=== PATIENT | male | born 1935 | race Hispanic/Latino ===

== ENCOUNTER 2019-09-07 12:58 | Emergency (ER) | payer MEDICARE ==
[~2019-09-07] VITALS: Ht 180.3 cm; Wt 85.7 kg
[~2019-09-07 12:58] MED LIST: CILOSTAZOL100 MG PO; FINASTERIDE5 MG PO; GABAPENTIN600 MG PO; LEVAQUIN500 MG PO; LISINOPRIL2.5 MG PO; LSNP2.5 PO; NORVASC10 MG PO; PRAVASTATIN SOD10 MG PO; PROTONIX40 MG PO
[2019-09-07] MEDS ORDERED: ONDANSETRON HCL 4 MG ORAL DISINTEGRATING TAB PO ONE (13:15)
[2019-09-07] MEDS ORDERED: CLONIDINE HCL 0.1 MG TAB PO ONE (13:30)
[2019-09-07 13:45] LABS: BASOPHILS % 0.2 % (0.0-1.0); HEMATOCRIT 43.3 % (38.2-49.6); HEMOGLOBIN 14.6 g/dL (14.0-18.0); LYMPHOCYTES # (AUTO) 0.8 (1.0-3.2); MEAN CORPUSCULAR HGB CONC 33.7 g/dL (31-35); MEAN CORPUSCULAR VOLUME 88.9 fL (81-99); MONOCYTES # (AUTO) 0.5 (0.2-0.8); MONOCYTES % 8.5 % (4.4-11.3); NEUTROPHILS # (AUTO) 4.7 (2.1-6.9); NEUTROPHILS % 77.6 % (38.7-80.0); PLATELET COUNT 127 x10e3/uL (140-360); RED BLOOD COUNT 4.87 x10e6/uL (4.3-5.7); RED CELL DISTRIBUTION WIDTH 12.6 % (11.7-14.4)
[2019-09-07 14:17] LABS: ALBUMIN 3.2 g/dL (3.5-5.0); ALBUMIN/GLOBULIN RATIO 0.7 (0.8-2.0); ANION GAP 14.8 mmol/L (8-16); CALCIUM 8.2 mg/dL (8.4-10.2); CREATININE, SERUM 1.25 mg/dL (0.72-1.25); POTASSIUM 3.8 mmol/L (3.5-5.1)
--- NOTE | 2019-09-07 15:03 | Emergency Department Note ---
History of Present Illnes History of Present Illness Chief Complaint: COVID PUI History of Present Illness This is a 84 year old male Chief Complaint Comment ATE BREAKFAST TACO TODAY AND VOMITING X ONE. PT WITH BODY ACHES AND COUGH. DENIES SOB. NO COVID TESTING DONE. PT AAOX4. AMBULATORY. NON SMOKER. . Historian: Patient, Family Member Arrival Mode: Car Onset (how long ago): hour(s) (2) Location: NO PAIN Quality: NAUSEA Severity: mild Onset quality: gradual Duration (how long): hour(s) (2) Timing of current episode: intermittent Progression: waxing and waning Chronicity: new Context: Denies recent illness, Denies recent surgery, Denies recent immobi lization, Denies recent travel, Denies trauma/injury, Denies new medications, Denies hx of DVT/PE, Denies non-compliance w/ medications, Denies other Relieving factors: none Exacerbating factors: none Associated symptoms: Reports denies other symptoms, Reports nausea/vomiting; Denies confusion, Denies chest pain, Denies cough, Denies diaphoresis, Denies fever/chills, Denies headaches, Denies loss of appetite, Denies malaise, Denies rash, Denies seizure, Denies shortness of breath, Denies syncope, Denies weakness, Denies other Treatments prior to arrival: none Past Medical/Family History Physician Review I have reviewed the patient's past medical and family history. Any updates have been documented here. Past Medical History Recent Fever: No Clinical Suspicion of Infectio: Yes New/Unexplained Change in Ment: No Past Medical History: Cancer, Hyperlipedemia Other Medical History: CHOLESTEROL PROSTATE CANCER Past Surgical History: None Social History Smoking Cessation: Unknown if ever smoked Counseling Performed: No Alcohol Use: None Any Illegal Drug Use: No Physically hurt or threatened: No Other Any Pre-Existing Lines (PICC,: No Review of Systems Review of Systems Constitutional: Reports no symptoms EENTM: Reports no symptoms Cardiovascular: Reports no symptoms Respiratory: Reports no symptoms Gastrointestinal: Reports as per HPI Genitourinary: Reports no symptoms Musculoskeletal: Reports no symptoms Integumentary: Reports no symptoms Neurological: Reports no symptoms Psychological: Reports no symptoms Endocrine: Reports no symptoms Hematological/Lymphatic: Reports no symptoms Physical Exam Related Data Allergies: Coded Allergies: No Known Drug Allergies (Verified Allergy, Unknown, 06/09/09) Triage Vital Signs Vital Signs Date Time Temp Pulse Resp B/P (MAP) Pulse Ox O2 Delivery O2 Flow Rate FiO2 09/07/19 13:12 99.0 72 16 193/81 97 Room Air Vital signs reviewed: Yes Physical Exam CONSTITUTIONAL Constitutional: Present well-developed, Present well-nourished HENT HENT: Present normocephalic, Present atraumatic, Present oropharynx clear/moist, Present nose normal HENT L/R: Present left ext ear normal, Present right ext ear normal EYES Eyes: Reports PERRL, Reports conjunctivae normal NECK Neck: Present ROM normal PULMONARY Pulmonary: Present effort normal, Present breath sounds normal CARDIOVASCULAR Cardiovascular: Present regular rhythm, Present heart sounds normal, Present capillary refill normal, Present normal rate GASTROINTESTINAL Abdominal: Present soft, Present nontender, Present bowel sounds normal GENITOURINARY Genitourinary: Present exam deferred SKIN Skin: Present warm, Present dry MUSCULOSKELETAL Musculoskeletal: Present ROM normal NEUROLOGICAL Neurological: Present alert, Present oriented x 3, Present no gross motor or sensory deficits PSYCHOLOGICAL Psychological: Present mood/affect normal, Present judgement normal Results Laboratory Result Diagram: 09/07/19 1300 09/07/19 1300 Laboratory Laboratory Tests Test 09/07/19 13:25 09/07/19 13:00 White Blood Count 6.10 x10e3/uL (4.8-10.8) Red Blood Count 4.87 x10e6/uL (4.3-5.7) Hemoglobin 14.6 g/dL (14.0-18.0) Hematocrit 43.3 % (38.2-49.6) Mean Corpuscular Volume 88.9 fL (81-99) Mean Corpuscular Hemoglobin 30.0 pg (28-32) Mean Corpuscular Hemoglobin Concent 33.7 g/dL (31-35) Red Cell Distribution Width 12.6 % (11.7-14.4) Platelet Count 127 x10e3/uL (140-360) Neutrophils (%) (Auto) 77.6 % (38.7-80.0) Lymphocytes (%) (Auto) 13.0 % (18.0-39.1) Monocytes (%) (Auto) 8.5 % (4.4-11.3) Eosinophils (%) (Auto) 0.0 % (0.0-6.0) Basophils (%) (Auto) 0.2 % (0.0-1.0) Neutrophils # (Auto) 4.7 (2.1-6.9) Lymphocytes # (Auto) 0.8 (1.0-3.2) Monocytes # (Auto) 0.5 (0.2-0.8) Eosinophils # (Auto) 0.0 (0.0-0.4) Basophils # (Auto) 0.0 (0.0-0.1) Absolute Immature Granulocyte (auto 0.04 x10e3/uL (0-0.1) Sodium Level 128 mmol/L (136-145) Potassium Level 3.8 mmol/L (3.5-5.1) Chloride Level 98 mmol/L (98-107) Carbon Dioxide Level 19 mmol/L (22-29) Anion Gap 14.8 mmol/L (8-16) Blood Urea Nitrogen 14 mg/dL (7-26) Creatinine 1.25 mg/dL (0.72-1.25) Estimat Glomerular Filtration Rate 55 ML/MIN (60-) BUN/Creatinine Ratio 11 (6-25) Glucose Level 133 mg/dL (74-118) Calcium Level 8.2 mg/dL (8.4-10.2) Total Bilirubin 0.6 mg/dL (0.2-1.2) Aspartate Amino Transf (AST/SGOT) 38 IU/L (5-34) Alanine Aminotransferase (ALT/SGPT) 25 IU/L (0-55) Alkaline Phosphatase 53 IU/L (40-150) Total Protein 7.5 g/dL (6.5-8.1) Albumin 3.2 g/dL (3.5-5.0) Globulin 4.3 g/dL (2.3-3.5) Albumin/Globulin Ratio 0.7 (0.8-2.0) Amylase Level 61 U/L (25-125) Lipase 36 U/L (8-78) Lab results reviewed: Yes Assessment & Plan Medical Decision Making MDM GASTRITIS COVID Reassessment Reassessment BETTER Assessment & Plan Final Impression: (1) Vomiting (2) Weakness Depart Disposition: HOME, SELF-CARE Last Vital Signs Date Time Temp Pulse Resp B/P (MAP) Pulse Ox O2 Delivery O2 Flow Rate FiO2 09/07/19 13:12 99.0 72 16 193/81 97 Room Air Home Meds Active Scripts Levofloxacin (LEVAQUIN) 500 Mg Tablet, 500 MG PO DAILY for 7 Days Prov:PACO COTTON NP 12/06/13 Pantoprazole Sodium (PROTONIX) 40 Mg Suspdr.pkt, 40 MG PO DAILY, #30 TAB Prov:PACO COTTON NP 12/06/13 Amlodipine Besylate (NORVASC) 10 Mg Tab, 10 MG PO DAILY, #30 Prov:PACO COTTON NP 12/06/13 [Lisinopril] 2.5 MG TAB No Conflict Check, 10 MG PO DAILY, #30 Prov:PACO COTTON NP 12/06/13 Reported Medications Finasteride (FINASTERIDE) 5 Mg Tablet, 5 MG PO DAILY, #30 TAB 12/03/13 Gabapentin (GABAPENTIN) 600 Mg Tablet, 600 MG PO HS 12/03/13 Pravastatin Sodium (PRAVASTATIN SODIUM) 10 Mg Tablet, 10 MG PO DAILY 12/03/13 Cilostazol (CILOSTAZOL) 100 Mg Tablet, 50 MG PO BID, #30 TAB 12/03/13 Medications in the ED Ondansetron HCl 4 mg ONCE ONCE PO Last administered on 09/07/19at 14:39; Admin Dose 4 MG; Start 09/07/19 at 13:15; Stop 09/07/19 at 13:17; Status DC Clonidine HCl 0.1 mg ONCE ONCE PO Last administered on 09/07/19at 14:39; Admin Dose 0.1 MG; Start 09/07/19 at 13:30; Stop 09/07/19 at 13:33; Status DC PRIYA SULLIVAN MD Sep 07, 2019 15:02
== END 2019-09-07 15:48 | disposition home or self-care (01) ==
LOC: ER 13:15
DX: R11.2 Nausea with vomiting, unspecified (principal); R53.1 Weakness; R50.9 Fever, unspecified; R05 Cough; E78.5 Hyperlipidemia, unspecified; Z85.46 Personal history of malignant neoplasm of prostate
CPT/HCPCS: 36415; 80053; 82150; 83690; 85025; 99284; Q0162; U0002

== ENCOUNTER 2019-09-09 10:22 | Emergency (ER) | payer MEDICARE ==
[~2019-09-09] VITALS: Ht 180.3 cm; Wt 85.7 kg
--- NOTE | 2019-09-09 10:53 | Emergency Department Note ---
History of Present Illnes History of Present Illness Chief Complaint: Abdominal Complaints History of Present Illness This is a 84 year old male per son pt c/o n/v/d no blood noted x 4 days took zofran states minimal relief seen here 2 days ago tested for covid pt is covid(+). Historian: Patient, Family Member Arrival Mode: Car Rayon Tester Required: Yes (son) Onset (how long ago): day(s) (4) Severity: moderate Onset quality: gradual Timing of current episode: intermittent Progression: waxing and waning Chronicity: new Context: Denies recent illness Relieving factors: none Exacerbating factors: none Associated symptoms: Reports fever/chills, Reports nausea/vomiting, Reports other (diarrhea) Treatments prior to arrival: none Past Medical/Family History Physician Review I have reviewed the patient's past medical and family history. Any updates have been documented here. Past Medical History Recent Fever: Yes Clinical Suspicion of Infectio: Yes New/Unexplained Change in Ment: No Past Medical History: Cancer, Hyperlipedemia Other Medical History: CHOLESTEROL PROSTATE CANCER Past Surgical History: None Social History Smoking Cessation: Never Smoker Counseling Performed: No Alcohol Use: None Any Illegal Drug Use: No TB Exposure/Symptoms: No Physically hurt or threatened: No Family History Family history of heart diseas: No Other Any Pre-Existing Lines (PICC,: No Review of Systems Review of Systems Constitutional: Reports as per HPI, Reports chills, Reports fever EENTM: Reports no symptoms Cardiovascular: Reports no symptoms Respiratory: Reports no symptoms Gastrointestinal: Reports as per HPI Genitourinary: Reports no symptoms Musculoskeletal: Reports no symptoms Integumentary: Reports no symptoms Neurological: Reports no symptoms Psychological: Reports no symptoms Endocrine: Reports no symptoms Hematological/Lymphatic: Reports no symptoms Physical Exam Related Data Allergies: Coded Allergies: No Known Drug Allergies (Verified Allergy, Unknown, 06/09/09) Triage Vital Signs Vital Signs Date Time Temp Pulse Resp B/P (MAP) Pulse Ox O2 Delivery O2 Flow Rate FiO2 09/09/19 10:29 100.6 69 24 149/63 94 Room Air Vital signs reviewed: Yes Physical Exam CONSTITUTIONAL Constitutional: Present well-developed, Present well-nourished HENT HENT: Present normocephalic, Present atraumatic, Present oropharynx clear/moist, Present nose normal HENT L/R: Present left ext ear normal, Present right ext ear normal EYES Eyes: Reports PERRL, Reports conjunctivae normal NECK Neck: Present ROM normal PULMONARY Pulmonary: Present effort normal, Present breath sounds normal CARDIOVASCULAR Cardiovascular: Present regular rhythm, Present heart sounds normal, Present capillary refill normal, Present normal rate GASTROINTESTINAL Abdominal: Present soft, Present nontender, Present bowel sounds normal GENITOURINARY Genitourinary: Present exam deferred SKIN Skin: Present warm, Present dry MUSCULOSKELETAL Musculoskeletal: Present ROM normal NEUROLOGICAL Neurological: Present alert, Present oriented x 3, Present no gross motor or sensory deficits PSYCHOLOGICAL Psychological: Present mood/affect normal, Present judgement normal Assessment & Plan Medical Decision Making MDM pt came for N/V x 4 days, son concerned because he vomited again this am after eating an apple. They did not know COVID results until I told them. Pt looks well, without complaints currently Reassessment Reassessment dc home, self-quarantine x 2 weeks, push po fluids, advance slowly to bland diet, Bentyl 10 mg po q6hr prn cramps, F/U PCP, RTED prn SOB etc Assessment & Plan Final Impression: (1) COVID-19 (2) Vomiting and diarrhea Depart Disposition: HOME, SELF-CARE Last Vital Signs Date Time Temp Pulse Resp B/P (MAP) Pulse Ox O2 Delivery O2 Flow Rate FiO2 09/09/19 10:29 100.6 69 24 149/63 94 Room Air Home Meds Active Scripts Levofloxacin (LEVAQUIN) 500 Mg Tablet, 500 MG PO DAILY for 7 Days Prov:PACO COTTON NP 12/06/13 Pantoprazole Sodium (PROTONIX) 40 Mg Suspdr.pkt, 40 MG PO DAILY, #30 TAB Prov:PACO COTTON NP 12/06/13 Amlodipine Besylate (NORVASC) 10 Mg Tab, 10 MG PO DAILY, #30 Prov:PACO COTTON NP 12/06/13 [Lisinopril] 2.5 MG TAB No Conflict Check, 10 MG PO DAILY, #30 Prov:PACO COTTON NP 12/06/13 Reported Medications Finasteride (FINASTERIDE) 5 Mg Tablet, 5 MG PO DAILY, #30 TAB 12/03/13 Gabapentin (GABAPENTIN) 600 Mg Tablet, 600 MG PO HS 12/03/13 Pravastatin Sodium (PRAVASTATIN SODIUM) 10 Mg Tablet, 10 MG PO DAILY 12/03/13 Cilostazol (CILOSTAZOL) 100 Mg Tablet, 50 MG PO BID, #30 TAB 12/03/13 CARMELA NGUYEN MD Sep 09, 2019 10:53
--- OUTSIDE RECORDS SUMMARY | 2019-09-11 19:23 | XMS REPORT | Clinical Summary ---
Author Author SH[facility] Address Unknown Phone Unavailable Care Team Providers Care Glass Furnace Tender Name Role Phone Marino Chew MD PCP Unavailable Allergies No Known Allergies Medications End Date Status Medication Sig Dispensed Refills Start Date Active atorvastatin (LIPITOR) 40 Take 40 mg by 0 MG tablet mouth daily. Active temazepam (RESTORIL) 7.5 Take 7.5 mg 0 MG capsule by mouth every night as needed for Sleep. Active amLODIPine (NORVASC) 10 Take 10 mg by 0 MG tablet mouth daily. Active glycopyrrolate (ROBINUL) Take 2 mg by 0 2 MG tablet mouth 3 (three) times daily. Active lisinopril Take 2.5 mg 0 (PRINIVIL,ZESTRIL) 2.5 MG by mouth tablet daily. 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 Last Filed Vital Signs Not on file Plan of Treatment Not on file Results Not on fileafter 09/08/2018 Insurance Payer Benefit Subscriber ID Type Phone Address Plan / Group [facility] x[facility]xx MEDICARE ADV [phone] Advance Directives Patient has advance care planning documents, and code status on file. For more i nformation, please contact: [facility] [address], [place] [id number] Date Inactivated Comments Code Status Date Activated 03/20/2017 2:25 PM Full Code 03/18/2017 3:37 PM This code status was determined by: Patient
== END 2019-09-09 10:45 | disposition home or self-care (01) ==
LOC: ER 10:28
DX: U07.1 COVID-19 (principal); R50.9 Fever, unspecified; R11.2 Nausea with vomiting, unspecified; R19.7 Diarrhea, unspecified; E78.5 Hyperlipidemia, unspecified; Z85.46 Personal history of malignant neoplasm of prostate
CPT/HCPCS: 99282

== ENCOUNTER 2020-04-18 00:20 | Inpatient (IN) | payer MEDICARE ==
[~2020-04-18] VITALS: Ht 180.3 cm; Wt 85.7 kg
[2020-04-18 01:00] LABS: BASOPHILS # (AUTO) 0.1 (0.0-0.1); BASOPHILS % 0.4 % (0.0-1.0); HEMATOCRIT 32.2 % (38.2-49.6); HEMOGLOBIN 10.4 g/dL (14.0-18.0); LYMPHOCYTES # (AUTO) 1.2 (1.0-3.2); LYMPHOCYTES % 7.8 % (18.0-39.1); MEAN CORPUSCULAR HGB CONC 32.3 g/dL (31-35); MEAN CORPUSCULAR VOLUME 92.8 fL (81-99); MONOCYTES # (AUTO) 0.9 (0.2-0.8); MONOCYTES % 5.5 % (4.4-11.3); NEUTROPHILS # (AUTO) 13.4 (2.1-6.9); NEUTROPHILS % 85.6 % (38.7-80.0); PLATELET COUNT 218 x10e3/uL (140-360); RED BLOOD COUNT 3.47 x10e6/uL (4.3-5.7); RED CELL DISTRIBUTION WIDTH 14.7 % (11.7-14.4)
[2020-04-18 01:10] LABS: INR 1.03; PROTHROMBIN TIME 14.1 seconds (11.9-14.5)
[2020-04-18 01:11] LABS: PARTIAL THROMBOPLASTIN TIME 30.3 seconds (23.8-35.5)
[2020-04-18 01:14] LABS: CLARITY,URINE CLOUDY (CLEAR); COLOR,URINE RED (YELLOW)
[2020-04-18 01:15] LABS: BACTERIA,URINE FEW /HPF; KETONES,URINE NEGATIVE (NEGATIVE); LEUKOCYTE ESTERASE ,URINE NEGATIVE (NEGATIVE); NITRITE,URINE NEGATIVE (NEGATIVE); PROTEIN,URINE DIPSTICK 3+ (NEGATIVE); RBC,URINE >50 /HPF (0-5); URINE UROBILINOGEN 0.2 mg/dL (0.2 - 1); WBC,URINE (MAN) 0-5 /HPF (0-5)
[2020-04-18 01:16] LABS: EPITHELIAL CELLS,URINE FEW /LPF
[2020-04-18 01:25] LABS: ALBUMIN 3.9 g/dL (3.5-5.0); ALBUMIN/GLOBULIN RATIO 1.1 (0.8-2.0); ANION GAP 17.8 mmol/L (8-16); CALCIUM 9.1 mg/dL (8.4-10.2); CREATININE, SERUM 1.51 mg/dL (0.72-1.25); POTASSIUM 4.8 mmol/L (3.5-5.1)
[2020-04-18] MEDS ORDERED: SODIUM CHLORIDE 0.9% 1000ML 500 ML IV ONE (01:45)
[2020-04-18] MEDS ORDERED: SODIUM CHLORIDE 0.9% 250ML 250 ML ONE (02:05)
[2020-04-18] MEDS ORDERED: IOPAMIDOL 370 MG/ML 200 ML INFUS..BTL INJ ONE (02:05)
[2020-04-18] MEDS ORDERED: ONDANSETRON HCL INJ 2MG/ML 2ML 2 MG/ML VIAL IV PRN (04:00)
[2020-04-18] MEDS: SODIUM CHLORIDE 0.9% 1000ML 1,000 ML IV SCH ×3 (06:05→23:41)
[2020-04-18 06:55] LABS: BASOPHILS # (AUTO) 0.1 (0.0-0.1); BASOPHILS % 0.4 % (0.0-1.0); EOSINOPHILS % 0.1 % (0.0-6.0); HEMATOCRIT 26.5 % (38.2-49.6); HEMOGLOBIN 8.7 g/dL (14.0-18.0); LYMPHOCYTES # (AUTO) 1.2 (1.0-3.2); MEAN CORPUSCULAR HEMOGLOBIN 29.8 pg (28-32); MEAN CORPUSCULAR HGB CONC 32.8 g/dL (31-35); MEAN CORPUSCULAR VOLUME 90.8 fL (81-99); MONOCYTES # (AUTO) 0.7 (0.2-0.8); MONOCYTES % 6.6 % (4.4-11.3); NEUTROPHILS % 81.2 % (38.7-80.0); PLATELET COUNT 181 x10e3/uL (140-360); RED BLOOD COUNT 2.92 x10e6/uL (4.3-5.7); RED CELL DISTRIBUTION WIDTH 14.6 % (11.7-14.4)
[2020-04-18] MEDS ORDERED: CEFTRIAXONE SOD 1 GM/50 ML BAG IV SCH (09:15)
[2020-04-18] MEDS: CEFTRIAXONE SOD 1 GM in SODIUM CHLORIDE 0.9% 50ML 50 ML IV SCH (10:12)
[2020-04-18 13:04] LABS: BASOPHILS # (AUTO) 0.1 (0.0-0.1); BASOPHILS % 0.5 % (0.0-1.0); EOSINOPHILS # (AUTO) 0.1 (0.0-0.4); EOSINOPHILS % 0.4 % (0.0-6.0); HEMATOCRIT 26.1 % (38.2-49.6); HEMOGLOBIN 8.4 g/dL (14.0-18.0); LYMPHOCYTES # (AUTO) 1.8 (1.0-3.2); LYMPHOCYTES % 15.8 % (18.0-39.1); MEAN CORPUSCULAR HEMOGLOBIN 29.7 pg (28-32); MEAN CORPUSCULAR HGB CONC 32.2 g/dL (31-35); MEAN CORPUSCULAR VOLUME 92.2 fL (81-99); MONOCYTES # (AUTO) 1.2 (0.2-0.8); MONOCYTES % 10.8 % (4.4-11.3); NEUTROPHILS # (AUTO) 8.1 (2.1-6.9); NEUTROPHILS % 71.9 % (38.7-80.0); PLATELET COUNT 177 x10e3/uL (140-360); RED BLOOD COUNT 2.83 x10e6/uL (4.3-5.7); RED CELL DISTRIBUTION WIDTH 14.8 % (11.7-14.4)
[2020-04-18 16:10] VITALS: BP 130/63
[2020-04-18 18:24] LABS: BASOPHILS # (AUTO) 0.1 (0.0-0.1); BASOPHILS % 0.5 % (0.0-1.0); EOSINOPHILS # (AUTO) 0.1 (0.0-0.4); EOSINOPHILS % 0.5 % (0.0-6.0); HEMATOCRIT 24.2 % (38.2-49.6); HEMOGLOBIN 7.8 g/dL (14.0-18.0); LYMPHOCYTES # (AUTO) 0.9 (1.0-3.2); LYMPHOCYTES % 9.4 % (18.0-39.1); MEAN CORPUSCULAR HEMOGLOBIN 29.7 pg (28-32); MEAN CORPUSCULAR HGB CONC 32.2 g/dL (31-35); MONOCYTES # (AUTO) 0.9 (0.2-0.8); MONOCYTES % 9.1 % (4.4-11.3); NEUTROPHILS # (AUTO) 7.8 (2.1-6.9); NEUTROPHILS % 79.9 % (38.7-80.0); PLATELET COUNT 176 x10e3/uL (140-360); RED BLOOD COUNT 2.63 x10e6/uL (4.3-5.7); RED CELL DISTRIBUTION WIDTH 14.9 % (11.7-14.4)
[2020-04-18 20:00] VITALS: BP 129/65
[2020-04-18] MEDS ORDERED: MORPHINE SULFATE INJ 2 MG/ML SYR IV PRN (20:45)
[2020-04-18] MEDS: ACETAMINOPHEN 325 MG TAB PO PRN (21:18)
[2020-04-18] MEDS: PRAVASTATIN 20 MG TAB PO SCH (21:18)
[2020-04-19] VITALS (7 sets, daily range): BP systolic 119–161; BP diastolic 56–72
[2020-04-19 00:23] LABS: ANION GAP 11.4 mmol/L (8-16); BLOOD UREA NITROGEN 15 mg/dL (7-26); BUN/CREATININE RATIO 15 (6-25); CALCIUM 7.9 mg/dL (8.4-10.2); CARBON DIOXIDE 22 mmol/L (22-29); CHLORIDE 109 mmol/L (98-107); CREATININE, SERUM 1.02 mg/dL (0.72-1.25); EST GLOMERULAR FILTRATION RATE > 60 ML/MIN (60-); GLUCOSE 125 mg/dL (74-118); POTASSIUM 4.4 mmol/L (3.5-5.1); SODIUM 138 mmol/L (136-145)
[2020-04-19 00:59] LABS: BASOPHILS % 0.5 % (0.0-1.0); EOSINOPHILS # (AUTO) 0.1 (0.0-0.4); EOSINOPHILS % 0.6 % (0.0-6.0); HEMATOCRIT 23.3 % (38.2-49.6); HEMOGLOBIN 7.7 g/dL (14.0-18.0); LYMPHOCYTES # (AUTO) 0.6 (1.0-3.2); LYMPHOCYTES % 7.4 % (18.0-39.1); MEAN CORPUSCULAR HEMOGLOBIN 30.2 pg (28-32); MEAN CORPUSCULAR VOLUME 91.4 fL (81-99); MONOCYTES # (AUTO) 0.6 (0.2-0.8); MONOCYTES % 6.3 % (4.4-11.3); NEUTROPHILS # (AUTO) 7.4 (2.1-6.9); NEUTROPHILS % 84.7 % (38.7-80.0); PLATELET COUNT 154 x10e3/uL (140-360); RED BLOOD COUNT 2.55 x10e6/uL (4.3-5.7); RED CELL DISTRIBUTION WIDTH 14.9 % (11.7-14.4)
[2020-04-19] MEDS ORDERED: ACETAMINOPHEN 325 MG TAB PO ONE (01:00)
[2020-04-19 06:04] LABS: BASOPHILS % 0.3 % (0.0-1.0); EOSINOPHILS % 0.5 % (0.0-6.0); HEMATOCRIT 22.3 % (38.2-49.6); HEMOGLOBIN 7.3 g/dL (14.0-18.0); LYMPHOCYTES # (AUTO) 0.6 (1.0-3.2); LYMPHOCYTES % 7.2 % (18.0-39.1); MEAN CORPUSCULAR HGB CONC 32.7 g/dL (31-35); MEAN CORPUSCULAR VOLUME 91.8 fL (81-99); MONOCYTES # (AUTO) 0.6 (0.2-0.8); MONOCYTES % 8.4 % (4.4-11.3); NEUTROPHILS # (AUTO) 6.3 (2.1-6.9); NEUTROPHILS % 82.9 % (38.7-80.0); PLATELET COUNT 146 x10e3/uL (140-360); RED BLOOD COUNT 2.43 x10e6/uL (4.3-5.7)
[2020-04-19] MEDS ORDERED: CEFTRIAXONE SOD 1 GM VIAL ONE (07:52)
[2020-04-19] MEDS ORDERED: SODIUM CHLORIDE 0.9% 50ML 50 ML ONE (07:53)
[2020-04-19] MEDS ORDERED: SODIUM CHLORIDE 0.9% 250ML 250 ML IV ONE (09:00)
[2020-04-19] MEDS: CEFTRIAXONE SOD 1 GM in SODIUM CHLORIDE 0.9% 50ML 50 ML IV SCH (09:16)
[2020-04-19] MEDS: ACETAMINOPHEN 325 MG TAB PO PRN (09:17)
[2020-04-19] MEDS: SODIUM CHLORIDE 0.9% 1000ML 1,000 ML IV SCH (09:30)
[2020-04-19 19:55] LABS: BASOPHILS % 0.6 % (0.0-1.0); EOSINOPHILS # (AUTO) 0.1 (0.0-0.4); EOSINOPHILS % 0.9 % (0.0-6.0); HEMATOCRIT 28.1 % (38.2-49.6); LYMPHOCYTES # (AUTO) 0.9 (1.0-3.2); LYMPHOCYTES % 13.4 % (18.0-39.1); MEAN CORPUSCULAR HEMOGLOBIN 29.8 pg (28-32); MONOCYTES # (AUTO) 0.8 (0.2-0.8); MONOCYTES % 11.6 % (4.4-11.3); NEUTROPHILS # (AUTO) 4.8 (2.1-6.9); NEUTROPHILS % 72.4 % (38.7-80.0); PLATELET COUNT 144 x10e3/uL (140-360); RED BLOOD COUNT 3.02 x10e6/uL (4.3-5.7); RED CELL DISTRIBUTION WIDTH 15.6 % (11.7-14.4)
[2020-04-19] MEDS: PRAVASTATIN 20 MG TAB PO SCH (20:05)
[2020-04-19] MEDS ORDERED: CLONIDINE HCL 0.1 MG TAB PO PRN (21:45)
[2020-04-19] MEDS: AMLODIPINE BESYLATE 5 MG TAB PO SCH (23:00)
[2020-04-19] MEDS: AZITHROMYCIN 250 MG TAB PO SCH (23:00)
[2020-04-20] VITALS (7 sets, daily range): BP systolic 130–146; BP diastolic 6–79
[2020-04-20] MEDS: SODIUM CHLORIDE 0.9% 1000ML 1,000 ML IV SCH ×3 (02:45→15:59)
[2020-04-20 06:15] LABS: BASOPHILS % 0.4 % (0.0-1.0); EOSINOPHILS # (AUTO) 0.2 (0.0-0.4); EOSINOPHILS % 2.2 % (0.0-6.0); HEMOGLOBIN 8.4 g/dL (14.0-18.0); LYMPHOCYTES # (AUTO) 1.4 (1.0-3.2); LYMPHOCYTES % 18.6 % (18.0-39.1); MEAN CORPUSCULAR HEMOGLOBIN 29.4 pg (28-32); MEAN CORPUSCULAR HGB CONC 32.3 g/dL (31-35); MEAN CORPUSCULAR VOLUME 90.9 fL (81-99); MONOCYTES # (AUTO) 0.9 (0.2-0.8); MONOCYTES % 11.9 % (4.4-11.3); NEUTROPHILS # (AUTO) 4.9 (2.1-6.9); NEUTROPHILS % 66.1 % (38.7-80.0); PLATELET COUNT 141 x10e3/uL (140-360); RED BLOOD COUNT 2.86 x10e6/uL (4.3-5.7); RED CELL DISTRIBUTION WIDTH 15.3 % (11.7-14.4)
[2020-04-20 06:42] LABS: BLOOD UREA NITROGEN 13 mg/dL (7-26); BUN/CREATININE RATIO 14 (6-25); CALCIUM 7.8 mg/dL (8.4-10.2); CARBON DIOXIDE 24 mmol/L (22-29); CHLORIDE 106 mmol/L (98-107); CREATININE, SERUM 0.95 mg/dL (0.72-1.25); EST GLOMERULAR FILTRATION RATE > 60 ML/MIN (60-); GLUCOSE 88 mg/dL (74-118); SODIUM 136 mmol/L (136-145)
[2020-04-20] MEDS ORDERED: CEFTRIAXONE SOD 1 GM VIAL ONE (08:11)
[2020-04-20] MEDS ORDERED: SODIUM CHLORIDE 0.9% 50ML 50 ML ONE (08:12)
[2020-04-20] MEDS: AMLODIPINE BESYLATE 5 MG TAB PO SCH ×2 (08:43→21:01)
[2020-04-20] MEDS: CEFTRIAXONE SOD 1 GM in SODIUM CHLORIDE 0.9% 50ML 50 ML IV SCH (08:43)
[2020-04-20] MEDS: AZITHROMYCIN 250 MG TAB PO SCH (21:01)
[2020-04-20] MEDS: PRAVASTATIN 20 MG TAB PO SCH (21:04)
[2020-04-21] VITALS (8 sets, daily range): BP systolic 127–147; BP diastolic 63–96
[2020-04-21] MEDS: SODIUM CHLORIDE 0.9% 1000ML 1,000 ML IV SCH ×3 (01:54→22:06)
[2020-04-21] MEDS ORDERED: SODIUM CHLORIDE 0.9% 50ML 50 ML ONE (08:19)
[2020-04-21] MEDS ORDERED: CEFTRIAXONE SOD 1 GM VIAL ONE (08:19)
[2020-04-21] MEDS: AMLODIPINE BESYLATE 5 MG TAB PO SCH ×2 (08:52→21:40)
[2020-04-21] MEDS: CEFTRIAXONE SOD 1 GM in SODIUM CHLORIDE 0.9% 50ML 50 ML IV SCH (08:53)
[2020-04-21] MEDS ORDERED: ONDANSETRON HCL 4 MG ORAL DISINTEGRATING TAB PO PRN (12:00)
[2020-04-21] MEDS: PRAVASTATIN 20 MG TAB PO SCH (21:40)
[2020-04-21] MEDS: AZITHROMYCIN 250 MG TAB PO SCH (22:00)
[2020-04-22] VITALS (9 sets, daily range): BP systolic 116–172; BP diastolic 59–88
[2020-04-22 06:11] LABS: BASOPHILS % 0.5 % (0.0-1.0); EOSINOPHILS # (AUTO) 0.2 (0.0-0.4); EOSINOPHILS % 3.5 % (0.0-6.0); HEMATOCRIT 28.7 % (38.2-49.6); HEMOGLOBIN 9.4 g/dL (14.0-18.0); LYMPHOCYTES # (AUTO) 1.3 (1.0-3.2); LYMPHOCYTES % 20.4 % (18.0-39.1); MEAN CORPUSCULAR HEMOGLOBIN 29.7 pg (28-32); MEAN CORPUSCULAR HGB CONC 32.8 g/dL (31-35); MEAN CORPUSCULAR VOLUME 90.5 fL (81-99); MONOCYTES # (AUTO) 0.7 (0.2-0.8); MONOCYTES % 10.7 % (4.4-11.3); NEUTROPHILS # (AUTO) 4.2 (2.1-6.9); NEUTROPHILS % 64.1 % (38.7-80.0); PLATELET COUNT 191 x10e3/uL (140-360); RED BLOOD COUNT 3.17 x10e6/uL (4.3-5.7)
[2020-04-22 06:27] LABS: BLOOD UREA NITROGEN 13 mg/dL (7-26); BUN/CREATININE RATIO 14 (6-25); CALCIUM 8.1 mg/dL (8.4-10.2); CARBON DIOXIDE 24 mmol/L (22-29); CHLORIDE 106 mmol/L (98-107); CREATININE, SERUM 0.92 mg/dL (0.72-1.25); EST GLOMERULAR FILTRATION RATE > 60 ML/MIN (60-); GLUCOSE 109 mg/dL (74-118); SODIUM 139 mmol/L (136-145)
[2020-04-22] MEDS ORDERED: CEFTRIAXONE SOD 1 GM VIAL ONE (07:50)
[2020-04-22] MEDS ORDERED: SODIUM CHLORIDE 0.9% 100 ML ONE (07:51)
[2020-04-22] MEDS: CEFTRIAXONE SOD 1 GM in SODIUM CHLORIDE 0.9% 50ML 50 ML IV SCH (08:11)
[2020-04-22] MEDS: SODIUM CHLORIDE 0.9% 1000ML 1,000 ML IV SCH ×2 (08:11→16:57)
[2020-04-22] MEDS: AMLODIPINE BESYLATE 5 MG TAB PO SCH ×2 (08:11→21:00)
[2020-04-22] MEDS ORDERED: B&O 60MG R/S 60 MG SUPP PR ONE (13:11)
[2020-04-22] MEDS ORDERED: IOPAMIDOL 300MG/ML 50ML INFUS..BTL IV ONE (13:11)
[2020-04-22] MEDS ORDERED: PROPOFOL IV EMULSION 10 MG/ML 20 ML VIAL ONE (13:34)
[2020-04-22] MEDS ORDERED: LIDOCAINE HCL 2% JELLY 5 ML TUBE ONE (13:34)
[2020-04-22] MEDS ORDERED: DEXAMETHASONE SOD PHOS INJ 4 MG/ML VIAL ONE (13:34)
[2020-04-22] MEDS ORDERED: SEVOFLURANE INHAL SOLN 250 ML PEN BTL ONE (13:34)
[2020-04-22] MEDS ORDERED: ONDANSETRON HCL INJ 2MG/ML 2ML 2 MG/ML VIAL ONE (13:34)
[2020-04-22] MEDS ORDERED: LIDOCAINE HCL 2% LOCAL INJ 5 ML SDV VIAL INJ ONE (13:34)
[2020-04-22] MEDS ORDERED: FENTANYL CITRATE/PF 100MCG/2 ML INJ ONE ×2 (13:42→15:12)
[2020-04-22] MEDS: PRAVASTATIN 20 MG TAB PO SCH (21:00)
[2020-04-22] MEDS: AZITHROMYCIN 250 MG TAB PO SCH (22:00)
[2020-04-23] VITALS (8 sets, daily range): BP systolic 123–140; BP diastolic 53–62
[2020-04-23] MEDS: SODIUM CHLORIDE 0.9% 1000ML 1,000 ML IV SCH ×2 (05:17→16:28)
[2020-04-23] MEDS ORDERED: SODIUM CHLORIDE 0.9% 50ML 50 ML ONE (07:38)
[2020-04-23] MEDS ORDERED: CEFTRIAXONE SOD 1 GM VIAL ONE (07:38)
[2020-04-23] MEDS: AMLODIPINE BESYLATE 5 MG TAB PO SCH ×2 (08:25→20:49)
[2020-04-23] MEDS: CEFTRIAXONE SOD 1 GM in SODIUM CHLORIDE 0.9% 50ML 50 ML IV SCH (08:25)
[2020-04-23] MEDS: ACETAMINOPHEN 325 MG TAB PO PRN (20:46)
[2020-04-23] MEDS: PRAVASTATIN 20 MG TAB PO SCH (20:49)
[2020-04-23] MEDS: AZITHROMYCIN 250 MG TAB PO SCH (20:49)
[2020-04-24] VITALS (8 sets, daily range): BP systolic 122–139; BP diastolic 56–70
[2020-04-24] MEDS: SODIUM CHLORIDE 0.9% 1000ML 1,000 ML IV SCH ×3 (00:24→21:19)
[2020-04-24] MEDS ORDERED: CEFTRIAXONE SOD 1 GM VIAL ONE (07:38)
[2020-04-24] MEDS ORDERED: SODIUM CHLORIDE 0.9% 50ML 50 ML ONE (07:39)
[2020-04-24] MEDS: CEFTRIAXONE SOD 1 GM in SODIUM CHLORIDE 0.9% 50ML 50 ML IV SCH (08:25)
[2020-04-24] MEDS: AMLODIPINE BESYLATE 5 MG TAB PO SCH ×2 (08:25→21:19)
[2020-04-24] MEDS: AZITHROMYCIN 250 MG TAB PO SCH (21:19)
[2020-04-24] MEDS: PRAVASTATIN 20 MG TAB PO SCH (21:19)
[2020-04-25 01:38] VITALS: BP 144/72
[2020-04-25] MEDS: SODIUM CHLORIDE 0.9% 1000ML 1,000 ML IV SCH ×2 (06:00→06:29)
[2020-04-25 07:45] VITALS: BP 128/72
[2020-04-25 08:18] VITALS: BP 128/72
[2020-04-25] MEDS: CEFTRIAXONE SOD 1 GM in SODIUM CHLORIDE 0.9% 50ML 50 ML IV SCH (09:28)
[2020-04-25] MEDS: AMLODIPINE BESYLATE 5 MG TAB PO SCH (09:28)
[2020-04-25 11:59] VITALS: BP 151/75
[2020-04-25] MEDS ORDERED: LACTULOSE SYRUP 20 GM/30 ML UDC PO ONE (12:00)
[2020-04-25] MEDS ORDERED: LEVOFLOXACIN250 MG PO (15:21)
[2020-04-25] MEDS ORDERED: TYLENOL # 31 EA PO (15:24)
== END 2020-04-25 15:47 | disposition home or self-care (01) | DRG 713 ==
LOC: ER 00:24 → ERHOLD 04:01 → MED/SURG3 15:00
PROVIDERS: ADMIT Internal Medicine; ATTEND Internal Medicine
PROC: 30233N1 Transfusion of Nonautologous Red Blood Cells into Peripheral Vein, Percutaneous Approach (ICD-10-PCS; 2020-04-19)
PROC: 0T788ZZ Dilation of Bilateral Ureters, Via Natural or Artificial Opening Endoscopic (ICD-10-PCS; principal; 2020-04-24)
PROC: 0V508ZZ Destruction of Prostate, Via Natural or Artificial Opening Endoscopic (ICD-10-PCS; 2020-04-24)
PROC: BT141ZZ Fluoroscopy of Kidneys, Ureters and Bladder using Low Osmolar Contrast (ICD-10-PCS; 2020-04-24)
DX: N40.1 Benign prostatic hyperplasia with lower urinary tract symptoms (principal); J18.9 Pneumonia, unspecified organism; N13.8 Other obstructive and reflux uropathy; N17.9 Acute kidney failure, unspecified; D62 Acute posthemorrhagic anemia; Z85.528 Personal history of other malignant neoplasm of kidney; E78.00 Pure hypercholesterolemia, unspecified; E78.5 Hyperlipidemia, unspecified; Z90.5 Acquired absence of kidney; N28.1 Cyst of kidney, acquired; R31.0 Gross hematuria; Z20.822 Contact with and (suspected) exposure to COVID-19; R33.8 Other retention of urine; I12.9 Hypertensive chronic kidney disease with stage 1 through stage 4 chronic kidney disease, or unspecified chronic kidney disease; N18.9 Chronic kidney disease, unspecified
CPT/HCPCS: 36415; 51700; 51703; 71045; 71046; 74178; 74420; 80048; 80053; 81001; 85025; 85610; 85730; 86850; 86900; 86920; 87086; 96361; 99284; C1758; C1769; J0696; J1100; J2001; J2405; J3010; J7030; J7050; P9016; Q9967; U0002

== ENCOUNTER 2020-05-22 21:47 | Inpatient (IN) | payer MEDICARE ==
[~2020-05-22] VITALS: Ht 180.3 cm; Wt 85.7 kg
[~2020-05-22 21:47] MED LIST changes: +LEVOFLOXACIN250 MG PO; +TYLENOL # 31 EA PO
[2020-05-22] MEDS ORDERED: ONDANSETRON HCL INJ 2MG/ML 2ML 2 MG/ML VIAL IV STA (22:28)
[2020-05-22] MEDS ORDERED: SODIUM CHLORIDE 0.9% 1000ML 1,000 ML IV ONE (22:30)
[2020-05-22] MEDS ORDERED: SODIUM CHLORIDE 0.9% 1000ML 1,000 ML IV SCH (22:30)
[2020-05-22] MEDS ORDERED: SODIUM CHLORIDE 0.9% 1000ML 2,000 ML ONE (22:39)
[2020-05-22 22:41] LABS: BASOPHILS # (AUTO) 0.1 (0.0-0.1); BASOPHILS % 0.6 % (0.0-1.0); EOSINOPHILS # (AUTO) 0.2 (0.0-0.4); EOSINOPHILS % 1.6 % (0.0-6.0); HEMATOCRIT 34.6 % (38.2-49.6); HEMOGLOBIN 11.2 g/dL (14.0-18.0); LYMPHOCYTES # (AUTO) 2.1 (1.0-3.2); LYMPHOCYTES % 21.1 % (18.0-39.1); MEAN CORPUSCULAR HEMOGLOBIN 28.9 pg (28-32); MEAN CORPUSCULAR HGB CONC 32.4 g/dL (31-35); MEAN CORPUSCULAR VOLUME 89.4 fL (81-99); MONOCYTES # (AUTO) 0.6 (0.2-0.8); MONOCYTES % 5.7 % (4.4-11.3); NEUTROPHILS # (AUTO) 6.9 (2.1-6.9); NEUTROPHILS % 70.5 % (38.7-80.0); PLATELET COUNT 275 x10e3/uL (140-360); RED BLOOD COUNT 3.87 x10e6/uL (4.3-5.7)
[2020-05-22 23:00] LABS: AMYLASE 104 U/L (25-125); LIPASE 8 U/L (8-78)
[2020-05-22 23:02] LABS: ALBUMIN 3.6 g/dL (3.5-5.0); ALBUMIN/GLOBULIN RATIO 0.9 (0.8-2.0); ANION GAP 19.1 mmol/L (8-16); CALCIUM 9.2 mg/dL (8.4-10.2); CREATININE, SERUM 1.43 mg/dL (0.72-1.25); POTASSIUM 4.1 mmol/L (3.5-5.1)
[2020-05-22 23:08] LABS: CREATINE KINASE MB 0.8 ng/mL (0-5.0)
[2020-05-22] MEDS: SODIUM CHLORIDE 0.9% 1000ML 1,000 ML IV SCH (23:45)
[2020-05-23 01:15] LABS: CLARITY,URINE CLOUDY (CLEAR); COLOR,URINE YELLOW (YELLOW)
[2020-05-23 01:16] LABS: BACTERIA,URINE MANY /HPF; EPITHELIAL CELLS,URINE FEW /LPF; KETONES,URINE NEGATIVE (NEGATIVE); LEUKOCYTE ESTERASE ,URINE 1+ (NEGATIVE); NITRITE,URINE NEGATIVE (NEGATIVE); PROTEIN,URINE DIPSTICK 2+ (NEGATIVE); RBC,URINE >50 /HPF (0-5); URINE UROBILINOGEN 0.2 mg/dL (0.2 - 1); WBC,URINE (MAN) 21-50 /HPF (0-5)
[2020-05-23] MEDS ORDERED: CEFEPIME HCL 1 GM VIAL IV SCH (01:30)
[2020-05-23] MEDS ORDERED: CEFEPIME HCL 1GM 1 GM in SODIUM CHLORIDE 0.9% 50ML 50 ML IV SCH (01:30)
[2020-05-23] MEDS: MORPHINE SULFATE INJ 2 MG/ML SYR IV PRN ×4 (03:00→20:12)
[2020-05-23] MEDS: ONDANSETRON HCL INJ 2MG/ML 2ML 2 MG/ML VIAL IV PRN ×3 (03:00→20:12)
[2020-05-23] MEDS ORDERED: IOPAMIDOL 370 MG/ML 200 ML INFUS..BTL INJ ONE (05:23)
[2020-05-23] MEDS ORDERED: SODIUM CHLORIDE 0.9% 50ML 50 ML ONE (05:24)
[2020-05-23 05:35] LABS: CREATINE KINASE MB 0.8 ng/mL (0-5.0)
[2020-05-23 10:46] VITALS: BP 156/73
[2020-05-23 10:48] LABS: CREATINE KINASE MB 0.7 ng/mL (0-5.0)
[2020-05-23] MEDS: SODIUM CHLORIDE 0.9% 1000ML 1,000 ML IV SCH ×2 (11:08→20:12)
[2020-05-23] MEDS: CEFEPIME HCL 1GM 1 GM in SODIUM CHLORIDE 0.9% 50ML 50 ML IV SCH ×2 (11:09→20:12)
[2020-05-23 11:27] VITALS: BP 156/73
[2020-05-23 12:10] VITALS: BP 156/73
[2020-05-23] MEDS ORDERED: glycopyrrolate PO (12:39)
[2020-05-23] MEDS ORDERED: LACTULOSE20 GM/30 M PO (12:39)
[2020-05-23] MEDS ORDERED: NITROFURANTOIN100 MG PO (12:39)
[2020-05-23] MEDS ORDERED: AMLODIPINE-BEN1 EAC2 PO (12:39)
[2020-05-23] MEDS ORDERED: FLOMAX0.4 MG PO (12:39)
[2020-05-23] MEDS ORDERED: LACTULOSE SYRUP 20 GM/30 ML UDC PO PRN (12:45)
[2020-05-23] MEDS: PANTOPRAZOLE 40 MG 10ML VIAL IV SCH (15:14)
[2020-05-23 16:03] VITALS: BP 154/83
[2020-05-23 20:00] VITALS: BP_SYST 142; BP_SYST 151; BP_DIAS 71; BP_DIAS 81
[2020-05-23] MEDS: PRAVASTATIN 20 MG TAB PO SCH (20:12)
[2020-05-24] VITALS (7 sets, daily range): BP systolic 134–157; BP diastolic 62–86
[2020-05-24 05:08] LABS: BASOPHILS # (AUTO) 0.1 (0.0-0.1); BASOPHILS % 0.3 % (0.0-1.0); HEMATOCRIT 34.1 % (38.2-49.6); HEMOGLOBIN 11.2 g/dL (14.0-18.0); LYMPHOCYTES # (AUTO) 0.8 (1.0-3.2); LYMPHOCYTES % 4.1 % (18.0-39.1); MEAN CORPUSCULAR HEMOGLOBIN 29.2 pg (28-32); MEAN CORPUSCULAR HGB CONC 32.8 g/dL (31-35); MEAN CORPUSCULAR VOLUME 88.8 fL (81-99); MONOCYTES # (AUTO) 1.3 (0.2-0.8); MONOCYTES % 6.7 % (4.4-11.3); NEUTROPHILS # (AUTO) 17.2 (2.1-6.9); NEUTROPHILS % 88.3 % (38.7-80.0); PLATELET COUNT 218 x10e3/uL (140-360); RED BLOOD COUNT 3.84 x10e6/uL (4.3-5.7); RED CELL DISTRIBUTION WIDTH 14.2 % (11.7-14.4)
[2020-05-24] MEDS: SODIUM CHLORIDE 0.9% 1000ML 1,000 ML IV SCH ×4 (05:32→23:40)
[2020-05-24] MEDS: MORPHINE SULFATE INJ 2 MG/ML SYR IV PRN (05:33)
[2020-05-24] MEDS: CEFEPIME HCL 1GM 1 GM in SODIUM CHLORIDE 0.9% 50ML 50 ML IV SCH ×3 (05:33→20:00)
[2020-05-24] MEDS: ONDANSETRON HCL INJ 2MG/ML 2ML 2 MG/ML VIAL IV PRN ×3 (05:33→18:01)
[2020-05-24 05:38] LABS: ALANINE AMINOTRANSFERASE 17 IU/L (0-55); ALBUMIN 2.7 g/dL (3.5-5.0); ALBUMIN/GLOBULIN RATIO 0.8 (0.8-2.0); ALKALINE PHOSPHATASE 69 IU/L (40-150); ANION GAP 15.2 mmol/L (8-16); BLOOD UREA NITROGEN 18 mg/dL (7-26); BUN/CREATININE RATIO 19 (6-25); CALCIUM 8.5 mg/dL (8.4-10.2); CARBON DIOXIDE 19 mmol/L (22-29); CHLORIDE 108 mmol/L (98-107); CREATININE, SERUM 0.96 mg/dL (0.72-1.25); EST GLOMERULAR FILTRATION RATE > 60 ML/MIN (60-); GLUCOSE 128 mg/dL (74-118); POTASSIUM 4.2 mmol/L (3.5-5.1); SODIUM 138 mmol/L (136-145)
[2020-05-24] MEDS: FINASTERIDE 5 MG TAB PO SCH (08:59)
[2020-05-24] MEDS: PANTOPRAZOLE 40 MG 10ML VIAL IV SCH ×2 (08:59→17:19)
[2020-05-24] MEDS: AMLODIPINE BESYLATE 10 MG TAB PO SCH (08:59)
[2020-05-24] MEDS ORDERED: NON-FORMULARY MEDICATION (Pravastatin Sodium 10 MG) PO SCH (09:00)
[2020-05-24 09:34] LABS: BAND NEUTROPHILS % (MANUAL) 3 %; LYMPHOCYTES % (MANUAL) 3 % (19-48); MONOCYTES % (MANUAL) 2 % (3.4-9.0); NEUTROPHILS % (MANUAL) 91 % (40-74)
[2020-05-24 09:35] LABS: PLATELET ESTIMATE ADEQUATE; RBC MORPHOLOGY COMMENT NORMAL
[2020-05-24 09:36] LABS: PLATELET MORPHOLOGY COMMENT FEW GIANT
[2020-05-24] MEDS ORDERED: BISACODYL 5 MG TAB EC PO ONE (15:45)
[2020-05-24] MEDS: PRAVASTATIN 20 MG TAB PO SCH (20:36)
[2020-05-25] MEDS: ONDANSETRON HCL INJ 2MG/ML 2ML 2 MG/ML VIAL IV PRN ×4 (00:10→18:24)
[2020-05-25 04:00] VITALS: BP 154/79
[2020-05-25] MEDS: CEFEPIME HCL 1GM 1 GM in SODIUM CHLORIDE 0.9% 50ML 50 ML IV SCH ×3 (04:00→20:20)
[2020-05-25 07:43] VITALS: BP 167/80
[2020-05-25] MEDS: PANTOPRAZOLE 40 MG 10ML VIAL IV SCH ×2 (08:16→17:20)
[2020-05-25] MEDS: BENAZEPRIL HCL 10 MG TAB PO SCH (08:17)
[2020-05-25] MEDS: FINASTERIDE 5 MG TAB PO SCH (08:18)
[2020-05-25] MEDS: AMLODIPINE BESYLATE 10 MG TAB PO SCH (08:18)
[2020-05-25] MEDS: SODIUM CHLORIDE 0.9% 1000ML 1,000 ML IV SCH (08:23)
[2020-05-25 10:42] VITALS: BP 167/80
[2020-05-25 11:02] LABS: BASOPHILS % 0.2 % (0.0-1.0); EOSINOPHILS % 0.1 % (0.0-6.0); HEMATOCRIT 31.7 % (38.2-49.6); HEMOGLOBIN 10.5 g/dL (14.0-18.0); LYMPHOCYTES % 5.5 % (18.0-39.1); MEAN CORPUSCULAR HGB CONC 33.1 g/dL (31-35); MEAN CORPUSCULAR VOLUME 87.6 fL (81-99); MONOCYTES # (AUTO) 1.1 (0.2-0.8); MONOCYTES % 6.1 % (4.4-11.3); NEUTROPHILS # (AUTO) 15.1 (2.1-6.9); NEUTROPHILS % 87.1 % (38.7-80.0); PLATELET COUNT 219 x10e3/uL (140-360); RED BLOOD COUNT 3.62 x10e6/uL (4.3-5.7); RED CELL DISTRIBUTION WIDTH 13.9 % (11.7-14.4)
[2020-05-25 11:17] LABS: BLOOD UREA NITROGEN 21 mg/dL (7-26); BUN/CREATININE RATIO 23 (6-25); CALCIUM 8.6 mg/dL (8.4-10.2); CARBON DIOXIDE 20 mmol/L (22-29); CHLORIDE 107 mmol/L (98-107); EST GLOMERULAR FILTRATION RATE > 60 ML/MIN (60-); GLUCOSE 123 mg/dL (74-118); SODIUM 133 mmol/L (136-145)
[2020-05-25 11:45] VITALS: BP 149/72
[2020-05-25 15:38] VITALS: BP 169/76
[2020-05-25] MEDS ORDERED: PROMETHAZINE 12.5MG/ NACL 0.9% 12.5 MG/50 ML BAG IV ONE (15:45)
[2020-05-25] MEDS: DOCUSATE SODIUM 100 MG CAP PO SCH (17:20)
[2020-05-25] MEDS: LACTOBACILLUS ACIDOPHILUS CAPSULE PO SCH (17:20)
[2020-05-25] MEDS ORDERED: HYDRALAZINE HCL 20 MG/ML VIAL IV PRN (19:00)
[2020-05-25 20:00] VITALS: BP 154/75
[2020-05-25] MEDS: PRAVASTATIN 20 MG TAB PO SCH (20:20)
[2020-05-25] MEDS: MORPHINE SULFATE INJ 2 MG/ML SYR IV PRN (20:42)
[2020-05-25] MEDS ORDERED: PIPER-TAZ 3.375 GM 50 ML IV SCH (22:00)
[2020-05-25] MEDS: PIPERACILLIN/TAZOBAC 3.375 GM in SODIUM CHLORIDE 0.9% 50ML 50 ML IV SCH (22:16)
[2020-05-25] MEDS: METOCLOPRAMIDE HCL 10 MG TAB PO SCH (22:16)
[2020-05-26] VITALS (9 sets, daily range): BP systolic 129–155; BP diastolic 66–78
[2020-05-26 05:04] LABS: BASOPHILS % 0.2 % (0.0-1.0); EOSINOPHILS % 0.1 % (0.0-6.0); HEMATOCRIT 31.9 % (38.2-49.6); HEMOGLOBIN 10.7 g/dL (14.0-18.0); LYMPHOCYTES # (AUTO) 1.1 (1.0-3.2); MEAN CORPUSCULAR HEMOGLOBIN 28.8 pg (28-32); MEAN CORPUSCULAR HGB CONC 33.5 g/dL (31-35); MEAN CORPUSCULAR VOLUME 85.8 fL (81-99); MONOCYTES % 6.8 % (4.4-11.3); NEUTROPHILS # (AUTO) 12.9 (2.1-6.9); NEUTROPHILS % 84.3 % (38.7-80.0); PLATELET COUNT 254 x10e3/uL (140-360); RED BLOOD COUNT 3.72 x10e6/uL (4.3-5.7); RED CELL DISTRIBUTION WIDTH 13.8 % (11.7-14.4)
[2020-05-26 05:23] LABS: % IRON SATURATION 11 % (15-50); IRON 20 ug/dL (65-175); TOTAL IRON BINDING CAPACITY 178 ug/dL (261-478); TRANSFERRIN 127 mg/dL (174-364)
[2020-05-26] MEDS: PIPERACILLIN/TAZOBAC 3.375 GM in SODIUM CHLORIDE 0.9% 50ML 50 ML IV SCH ×3 (05:23→22:50)
[2020-05-26] MEDS: METOCLOPRAMIDE HCL 10 MG TAB PO SCH ×4 (08:17→21:02)
[2020-05-26] MEDS: DOCUSATE SODIUM 100 MG CAP PO SCH ×2 (08:18→16:44)
[2020-05-26] MEDS: BENAZEPRIL HCL 10 MG TAB PO SCH (08:18)
[2020-05-26] MEDS: LACTOBACILLUS ACIDOPHILUS CAPSULE PO SCH ×2 (08:18→16:44)
[2020-05-26] MEDS: AMLODIPINE BESYLATE 10 MG TAB PO SCH (08:18)
[2020-05-26] MEDS: PANTOPRAZOLE 40 MG 10ML VIAL IV SCH ×2 (08:18→16:07)
[2020-05-26] MEDS: FINASTERIDE 5 MG TAB PO SCH (08:19)
[2020-05-26] MEDS ORDERED: FENTANYL CITRATE/PF 100MCG/2 ML INJ ONE (12:32)
[2020-05-26] MEDS ORDERED: PROPOFOL IV EMULSION 10 MG/ML 20 ML VIAL ONE (12:56)
[2020-05-26] MEDS ORDERED: POVIDONE IODINE 0.05% 0.05 % ML PO ONE (12:56)
[2020-05-26] MEDS ORDERED: LIDOCAINE HCL 2% LOCAL INJ 5 ML SDV VIAL INJ ONE (12:56)
[2020-05-26] MEDS ORDERED: SODIUM CHLORIDE 0.9% 1000ML 1,000 ML IV SCH (15:00)
[2020-05-26] MEDS ORDERED: SODIUM CHLORIDE 0.9% 1000ML 1,000 ML ONE (15:09)
[2020-05-26] MEDS ORDERED: IRON SUCROSE 100 MG in SODIUM CHLORIDE 0.9% 100 ML 100 ML IV SCH (20:00)
[2020-05-26] MEDS: PRAVASTATIN 20 MG TAB PO SCH (21:02)
[2020-05-27 00:15] VITALS: BP 134/69
[2020-05-27 04:00] VITALS: BP 131/63
[2020-05-27 04:56] LABS: BASOPHILS # (AUTO) 0.1 (0.0-0.1); BASOPHILS % 0.5 % (0.0-1.0); EOSINOPHILS # (AUTO) 0.2 (0.0-0.4); EOSINOPHILS % 1.8 % (0.0-6.0); HEMATOCRIT 29.2 % (38.2-49.6); HEMOGLOBIN 9.7 g/dL (14.0-18.0); LYMPHOCYTES # (AUTO) 1.4 (1.0-3.2); LYMPHOCYTES % 12.5 % (18.0-39.1); MEAN CORPUSCULAR HEMOGLOBIN 28.7 pg (28-32); MEAN CORPUSCULAR HGB CONC 33.2 g/dL (31-35); MEAN CORPUSCULAR VOLUME 86.4 fL (81-99); MONOCYTES # (AUTO) 1.2 (0.2-0.8); MONOCYTES % 11.4 % (4.4-11.3); NEUTROPHILS # (AUTO) 7.7 (2.1-6.9); NEUTROPHILS % 70.8 % (38.7-80.0); PLATELET COUNT 249 x10e3/uL (140-360); RED BLOOD COUNT 3.38 x10e6/uL (4.3-5.7); RED CELL DISTRIBUTION WIDTH 13.5 % (11.7-14.4)
[2020-05-27] MEDS: PIPERACILLIN/TAZOBAC 3.375 GM in SODIUM CHLORIDE 0.9% 50ML 50 ML IV SCH ×2 (06:15→14:42)
[2020-05-27 07:45] VITALS: BP 146/65
[2020-05-27 07:47] VITALS: BP 146/65
[2020-05-27] MEDS: DOCUSATE SODIUM 100 MG CAP PO SCH ×2 (08:57→16:03)
[2020-05-27] MEDS: BENAZEPRIL HCL 10 MG TAB PO SCH (08:57)
[2020-05-27] MEDS: FINASTERIDE 5 MG TAB PO SCH (08:58)
[2020-05-27] MEDS: LACTOBACILLUS ACIDOPHILUS CAPSULE PO SCH ×2 (08:58→16:03)
[2020-05-27] MEDS: METOCLOPRAMIDE HCL 10 MG TAB PO SCH ×3 (08:58→16:03)
[2020-05-27] MEDS: AMLODIPINE BESYLATE 10 MG TAB PO SCH (08:58)
[2020-05-27] MEDS: PANTOPRAZOLE 40 MG 10ML VIAL IV SCH ×2 (08:59→16:03)
[2020-05-27] MEDS: ONDANSETRON HCL INJ 2MG/ML 2ML 2 MG/ML VIAL IV PRN (10:05)
[2020-05-27 11:50] VITALS: BP 124/65
[2020-05-27] MEDS ORDERED: PROTONIX40 MG PO (12:05)
[2020-05-27 15:35] VITALS: BP_SYST 131; BP_SYST 156; BP_DIAS 70
[2020-05-27] MEDS ORDERED: LEVOFLOXACIN250 MG PO (19:11)
== END 2020-05-27 17:57 | disposition home or self-care (01) | DRG 872 ==
LOC: ER 22:07 → ERHOLD 05-23 02:45 → IMCU 05-23 10:19
PROVIDERS: ADMIT Internal Medicine; ATTEND Internal Medicine
PROC: 0D758ZZ Dilation of Esophagus, Via Natural or Artificial Opening Endoscopic (ICD-10-PCS; 2020-05-26)
PROC: 0DB18ZX Excision of Upper Esophagus, Via Natural or Artificial Opening Endoscopic, Diagnostic (ICD-10-PCS; principal; 2020-05-26 17:30)
PROC: 0DB78ZX Excision of Stomach, Pylorus, Via Natural or Artificial Opening Endoscopic, Diagnostic (ICD-10-PCS; 2020-05-26 17:30)
DX: A41.9 Sepsis, unspecified organism (principal); N17.9 Acute kidney failure, unspecified; N30.90 Cystitis, unspecified without hematuria; E78.5 Hyperlipidemia, unspecified; R65.20 Severe sepsis without septic shock; K20.90 Esophagitis, unspecified without bleeding; K44.9 Diaphragmatic hernia without obstruction or gangrene; Z90.5 Acquired absence of kidney; Z85.528 Personal history of other malignant neoplasm of kidney; N40.0 Benign prostatic hyperplasia without lower urinary tract symptoms; K29.70 Gastritis, unspecified, without bleeding; Z20.822 Contact with and (suspected) exposure to COVID-19; I12.9 Hypertensive chronic kidney disease with stage 1 through stage 4 chronic kidney disease, or unspecified chronic kidney disease; N18.9 Chronic kidney disease, unspecified; N40.1 Benign prostatic hyperplasia with lower urinary tract symptoms; D50.9 Iron deficiency anemia, unspecified; K52.9 Noninfective gastroenteritis and colitis, unspecified
CPT/HCPCS: 36415; 43239; 43450; 70450; 74177; 80048; 80053; 81001; 82150; 82550; 82553; 82607; 82746; 82948; 83540; 83605; 83690; 84466; 84484; 85025; 85045; 87040; 87086; 88305; 88312; 93005; 99251; 99285; J0360; J0692; J1756; J2001; J2270; J2405; J2543; J2550; J3010; J7030; Q9967; U0002

== ENCOUNTER 2023-01-09 13:44 | Emergency (ER) | payer MEDICARE ==
[~2023-01-09] VITALS: Ht 180.3 cm; Wt 85.7 kg
[~2023-01-09 13:44] MED LIST changes: +AMLODIPINE-BEN1 EAC2 PO; +FLOMAX0.4 MG PO; +LACTULOSE20 GM/30 M PO; +NITROFURANTOIN100 MG PO; +glycopyrrolate PO
[2023-01-09 14:18] VITALS: O2SAT 96
[2023-01-09 15:38] LABS: CLARITY,URINE TURBID (CLEAR); COLOR,URINE RED (YELLOW)
[2023-01-09 15:52] LABS: BILIRUBIN,URINE NEGATIVE (NEGATIVE); GLUCOSE, URINE NEGATIVE (NEGATIVE); KETONES,URINE NEGATIVE (NEGATIVE); LEUKOCYTE ESTERASE ,URINE NEGATIVE (NEGATIVE); NITRITE,URINE NEGATIVE (NEGATIVE); PH,URINE 6.5 (5 - 7); PROTEIN,URINE DIPSTICK >=300 (NEGATIVE); URINE UROBILINOGEN 1 mg/dL (0.2 - 1)
[2023-01-09 15:54] LABS: BACTERIA,URINE FEW /HPF; RBC,URINE >50 /HPF (0-5)
[2023-01-09] MEDS ORDERED: CEFDINIR300 MG PO ×2 (16:27→18:16)
== END 2023-01-09 16:41 | disposition home or self-care (01) ==
LOC: ER 13:52
DX: R31.9 Hematuria, unspecified (principal); I10 Essential (primary) hypertension; E78.5 Hyperlipidemia, unspecified; Z85.528 Personal history of other malignant neoplasm of kidney
CPT/HCPCS: 81001; 87086; 99282